=== PATIENT | female | born 1995 | race Hispanic/Latino ===

== ENCOUNTER 2022-01-05 15:19 | Emergency (ER) | payer OTHER ==
[2022-01-05 16:48] VITALS: BP 121/77
--- NOTE | 2022-01-05 17:11 | XRay Report ---
XR tibia fibula 2V RT INDICATION / CLINICAL INFORMATION: injury. COMPARISON: None available. FINDINGS: BONES/JOINT(S): No acute fracture or subluxation. No significant degenerative changes. SOFT TISSUES: No significant abnormality. ADDITIONAL FINDINGS: None. Signer Name: Emile Bailey MD Signed: 01/05/2022 5:06 PM Workstation Name: [id number]
[2022-01-05] MEDS ORDERED: KETOROLAC 10 MG TAB PO ONE (17:41)
--- NOTE | 2022-01-05 18:20 | Emergency Department Report ---
ED Lower Extremity HPI - General Chief Complaint: Extremity Injury, Lower Stated Complaint: BROKEN ANKLE Time Seen by Provider: 01/05/22 17:27 Source: patient Mode of arrival: Ambulatory Limitations: No Limitations - History of Present Illness Initial Comments: 26-year-old white female with no past medical history presents to the emergency department for evaluation of right ankle pain. She states that 5 to 6 days ago she was in an inpatient mental health facility and they were playing a game as a group. States that part of the game involves stopping very hard, and she states that after stopping a few time she started to have pain to her right ankle and lower leg and has been having worsening pain since then. He states that over the last 1 to 2 days she noticed swelling to the area and she has been unable to ambulate on it without severe pain. She denies any other trauma. MD Complaint: leg injury, ankle injury -: Sudden, days(s) (5-6) Injury: Leg: Right, Ankle: Right Type of Injury: other (From stomping too hard) Place: other (Inpatient mental health facility) Severity scale (0 -10): 9 Worsens With: weight bearing, movement, palpation Associated Symptoms: swelling, able to partially bear weight. denies: numbness, tingling - Related Data Allergies Allergy/AdvReac Type Severity Reaction Status Date / Time No Known Allergies Allergy Verified 01/05/22 16:48 ED Review of Systems ROS: Stated complaint: BROKEN ANKLE Other details as noted in HPI Comment: All other systems reviewed and negative Constitutional: denies: chills, fever Respiratory: denies: shortness of breath, SOB with exertion, SOB at rest Cardiovascular: denies: chest pain, palpitations, dyspnea on exertion, orthopnea Gastrointestinal: denies: abdominal pain, nausea, vomiting Genitourinary: denies: urgency, dysuria Musculoskeletal: denies: back pain, joint swelling Neurological: denies: headache, weakness, numbness, paresthesias, abnormal gait, vertigo ED Past Medical Hx - Past Medical History Hx Seizures: Yes - Surgical History Past Surgical History?: Yes Hx Appendectomy: Yes ED Physical Exam - General Limitations: No Limitations General appearance: alert, in no apparent distress - Head Head exam: Present: atraumatic, normocephalic - Eye Eye exam: Present: normal appearance. Absent: conjunctival injection - Neck Neck exam: Present: normal inspection, full ROM. Absent: tenderness - Respiratory Respiratory exam: Absent: respiratory distress - Cardiovascular Cardiovascular Exam: Present: regular rate - GI/Abdominal GI/Abdominal exam: Absent: distended - Expanded Lower Extremity Exam Right Knee exam: Present: normal inspection Lower Leg exam: Present: tenderness. Absent: swelling Ankle exam: Present: tenderness, swelling. Absent: abrasion, laceration, ecchymosis, deformity, dislocation, erythema Foot/Toe exam: Present: normal inspection Neuro vascular tendon exam: Present: no vascular compromise. Absent: pulse deficit, abnormal cap refill, motor deficit, sensory deficit, extremity cold to touch - Back Exam Back exam: Present: normal inspection. Absent: tenderness - Neurological Exam Neurological exam: Present: alert, oriented X3 - Psychiatric Psychiatric exam: Present: normal affect, normal mood - Skin Skin exam: Present: warm, dry, intact, normal color ED Course Vital Signs 01/05/22 16:46 Temperature 98.3 F Pulse Rate 81 Respiratory 18 Rate Blood Pressure 121/77 O2 Sat by Pulse 97 Oximetry ED Lower Extremity MDM - Radiology Data Radiology results: report reviewed, image reviewed Right tib-fib x-ray: FINDINGS: BONES/JOINT(S): No acute fracture or subluxation. No significant degenerative changes. SOFT TISSUES: No significant abnormality. ADDITIONAL FINDINGS: None. - Medical Decision Making 26-year-old white female with no past medical history presents to the emergency department for evaluation of right ankle pain. She states that 5 to 6 days ago she was in an inpatient mental health facility and they were playing a game as a group. States that part of the game involves stopping very hard, and she states that after stopping a few time she started to have pain to her right ankle and lower leg and has been having worsening pain since then. He states that over the last 1 to 2 days she noticed swelling to the area and she has been unable to ambulate on it without severe pain. She denies any other trauma. Right tib-fib x-ray within normal limits (ankle was visualized on x-ray). No gross abnormalities noted on exam. Patient states that area is still painful. She will be placed in Kevin wrap for comfort and given crutches to assist in ambulation. He is advised to take ibuprofen and Tylenol as needed for pain and follow-up with primary care provider or orthopedics if no improvement or worsening symptoms. She verbalized understanding of and agreement with plan of care. Critical care attestation.: If time is entered above; I have spent that time in minutes in the direct care of this critically ill patient, excluding procedure time. ED Disposition Clinical Impression: Right leg pain Disposition: HOME / SELF CARE / HOMELESS Is pt being admited?: No Does the pt Need Aspirin: No Condition: Stable Instructions: RICE Therapy for Routine Care of Injuries, [id number], How to Use Cold Therapy, [id number] Additional Instructions: Take ibuprofen as needed for pain. Follow-up with primary care provider if no improvement or worsening symptoms. Referrals: DYAN CHERY MD [Referring] - 3-5 Days SAM ACOSTA MD [Staff Physician] - 3-5 Days Time of Disposition: 18:20
== END 2022-01-05 19:00 | disposition home or self-care (01) ==
LOC: ED 15:19
DX: M79.604 Pain in right leg (principal)
CPT/HCPCS: 99283